=== PATIENT | male | born 1995 | race Caucasian/White ===

== ENCOUNTER 2020-04-08 11:59 | Day surgery (SDC) | payer OTHER ==
[~2020-04-08] VITALS: Ht 172.7 cm; Wt 83.1 kg
[~2020-04-08 11:59] MED LIST: ESOM20 PO; OTC HEARTBURN MED
[2020-04-08] MEDS ORDERED: PRILOSEC OTC20 MG PO (12:28)
--- NOTE | 2020-04-08 13:36 | NUR ---
04/08/20 1336 Meliza Garcia BP 128/91, HR 72, SPO2 100%, SEDATION VIA IV PER DR. ARAGON FOR NERVE BLOCK. NRB MASK AT 6L/MIN PER DR. ARAGON. PT TOLERATED WELL. REPORT TO [email or web address].
--- NOTE | 2020-04-08 14:06 | NUR ---
04/08/20 1406 Anibal Reynoso 1 MG EPI ADDED TO EACH OF THE FIRST 3 BAGS OF LR FOR IRRIGATION PER ORDER
== END 2020-04-08 17:35 | disposition home or self-care (01) ==
LOC: ORSCSDS 11:59
PROVIDERS: Orthopaedic Surgery
PROC: 0SQC4ZZ Repair Right Knee Joint, Percutaneous Endoscopic Approach (ICD-10-PCS; principal; 2020-04-08 13:15)
PROC: 0MRN47Z Replacement of Right Knee Bursa and Ligament with Autologous Tissue Substitute, Percutaneous Endoscopic Approach (ICD-10-PCS; principal; 2020-04-08 13:15)
DX: S83.511A Sprain of anterior cruciate ligament of right knee, initial encounter (principal); S83.221A Peripheral tear of medial meniscus, current injury, right knee, initial encounter; S83.251A Bucket-handle tear of lateral meniscus, current injury, right knee, initial encounter; S89.91XA Unspecified injury of right lower leg, initial encounter
CPT/HCPCS: A9270; C1713; C1776; J0171; J0690; J1100; J1170; J1885; J2250; J2405; J2704; J2795; J3010; J7120